=== PATIENT | male | born 1985 | race Caucasian/White ===

== ENCOUNTER 2017-05-28 18:15 | Inpatient (IN) | payer MEDICAID, OTHER ==
[~2017-05-28] VITALS: Ht 182.9 cm; Wt 81.0 kg
[~2017-05-28 18:15] MED LIST: AMPH15TA2 PO
[2017-05-28] MEDS ORDERED: normal saline 1000ML IV soln IVB ONE (20:15)
[2017-05-28] MEDS ORDERED: ondansetron/PF 4mg/2ml inj IV ONE (20:15)
[2017-05-28] MEDS ORDERED: LORazepam 2 mg/ml vial IV ONE (20:15)
[2017-05-28 20:42] LABS: BASOPHILS % (AUTO) 0.3 % (0-1); EOSINOPHILS # (AUTO) 0.2 X10'3 (0-0.9); EOSINOPHILS % (AUTO) 2.1 % (0-6); HEMATOCRIT 53.4 % (42.0-52.0); LYMPHOCYTES % (AUTO) 11.1 % (21-51); MEAN CORPUSCULAR HEMOGLOBIN 31.2 PG (27.0-31.0); MEAN CORPUSCULAR HGB CONC 34.1 % (33.0-36.5); MEAN CORPUSCULAR VOLUME 91.3 FL (78-98); MEAN PLATELET VOLUME 7.8 FL (7.4-10.4); MONOCYTES # (AUTO) 0.6 X10'3 (0-0.9); MONOCYTES % (AUTO) 6.6 % (2-12); NEUTROPHILS # (AUTO) 6.9 X10'3 (1.8-7.7); NEUTROPHILS % (AUTO) 79.9 % (42-75); PLATELET COUNT 254 X10'3 (140-440); RED BLOOD COUNT 5.85 X10'6 (4.70-6.10); RED CELL DISTRIBUTION WIDTH 12.9 % (11.5-14.5); WHITE BLOOD COUNT 8.7 X10'3 (4.5-11.0)
[2017-05-28 20:46] LABS: HEMOGLOBIN 18.2 g/dl (14.0-17.9)
[2017-05-28 20:59] LABS: ALANINE AMINOTRANSFERASE 25 U/L (12-78); ALBUMIN/GLOBULIN RATIO 1.1 (1.1-1.5); ALKALINE PHOSPHATASE 68 IU/L (46-116); ANION GAP 6 (8-16); ASPARTATE AMINO TRANSFERASE 14 U/L (10-37); BILIRUBIN,TOTAL 0.7 MG/DL (0.1-1.0); BLOOD UREA NITROGEN 9 MG/DL (7-18); CALCIUM 9.1 MG/DL (8.5-10.1); CHLORIDE 105 MMOL/L (99-107); CREATININE 0.75 MG/DL (0.60-1.10); ETHANOL < 0.010 GM/DL (0.0-0.010); GLUCOSE 107 MG/DL (70-104); POTASSIUM 3.9 MMOL/L (3.5-5.1); SODIUM 141 MMOL/L (135-145); TOTAL CARBON DIOXIDE 29.7 MMOL/L (24-32); TOTAL PROTEIN 7.7 G/DL (6.4-8.2); eGFR > 90 ML/MIN
[2017-05-28] MEDS ORDERED: temazepam 15mg capsule PO PRN (21:00)
[2017-05-28] MEDS ORDERED: morphine 5 MG/ML injection IV ONE (21:20)
[2017-05-28] MEDS ORDERED: ALPR2TAB2 PO (21:23)
[2017-05-28 21:25] LABS: LIPASE 94 U/L (73-393)
[2017-05-28] MEDS ORDERED: HYDROmorphone 1 mg/ml syringe IV PRN ×2 (21:45)
[2017-05-28] MEDS ORDERED: acetaminophen 325mg tablet PO PRN ×2 (21:45)
[2017-05-28] MEDS ORDERED: bisacodyl 10mg suppository rectal RC PRN (21:45)
[2017-05-28] MEDS ORDERED: metoclopramide 5 mg/ml inj IV PRN (21:45)
[2017-05-28] MEDS ORDERED: magnesium hydroxide 30ml (MOM) UD suspension PO PRN (21:45)
[2017-05-28] MEDS ORDERED: thiamine 100mg/ml 2ml inj. IV ONE (21:45)
[2017-05-28] MEDS ORDERED: mag hydrox/Alum hydrox/simeth 30ml oral suspension PO PRN (21:45)
[2017-05-28] MEDS ORDERED: diphenhydrAMINE 50 mg/ml inj IV PRN (21:45)
[2017-05-28] MEDS ORDERED: acetaminophen 650mg rectal suppository RC PRN (21:45)
[2017-05-28] MEDS ORDERED: thiamine inj. 100 MG in normal saline 100ml IV soln 100 ML IV ONE (21:45)
[2017-05-28] MEDS ORDERED: diphenhydrAMINE 25mg capsule PO PRN (21:45)
[2017-05-28] MEDS ORDERED: dextrose 50%-water 50ml dispensing syringe IV PRN (21:45)
[2017-05-28] MEDS ORDERED: haloperidol 5mg tablet PO PRN (21:45)
[2017-05-28] MEDS ORDERED: haloperidol lactate 5mg/ml inj IM PRN (21:45)
[2017-05-28] MEDS ORDERED: normal saline 1000ml 1,000 ML IVB ONE (21:54)
[2017-05-28 22:14] LABS: PARTIAL THROMBOPLASTIN TIME 26 SECONDS (22-32); PROTHROMBIN TIME 10.3 SECONDS (9.0-12.0)
[2017-05-28 22:20] LABS: CREATINE KINASE 100 U/L (39-308); MAGNESIUM 1.8 MG/DL (1.5-2.4); PHOSPHORUS 3.8 MG/DL (2.3-4.5)
[2017-05-28] MEDS ORDERED: morphine sulfate 8 MG/ML SYRINGE IV PRN (22:40)
[2017-05-28] MEDS: dextrose 5%-1/2 normal saline 1,000 ML IV SCH (23:00)
[2017-05-28] MEDS: LORazepam 2 mg/ml vial IV PRN (23:45)
[2017-05-29] VITALS: BP 121/76
[2017-05-29] MEDS: folic acid inj. 2 MG, thiamine inj. 100 MG, MVI, adult No.4 with vit. K 10 ML in dextro... IV SCH ×8 (00:44→08:54)
[2017-05-29] MEDS: morphine sulfate 8 MG/ML SYRINGE IV PRN ×2 (01:31→08:56)
[2017-05-29] MEDS: LORazepam 2 mg/ml vial IV PRN ×5 (05:57→21:25)
[2017-05-29 06:06] LABS: BASOPHILS % (AUTO) 0.4 % (0-1); EOSINOPHILS # (AUTO) 0.2 X10'3 (0-0.9); EOSINOPHILS % (AUTO) 3.2 % (0-6); HEMATOCRIT 44.8 % (42.0-52.0); HEMOGLOBIN 15.4 g/dl (14.0-17.9); LYMPHOCYTES # (AUTO) 1.7 X10'3 (1.1-4.8); LYMPHOCYTES % (AUTO) 25.5 % (21-51); MEAN CORPUSCULAR HEMOGLOBIN 31.6 PG (27.0-31.0); MEAN CORPUSCULAR HGB CONC 34.5 % (33.0-36.5); MEAN CORPUSCULAR VOLUME 91.7 FL (78-98); MEAN PLATELET VOLUME 8.4 FL (7.4-10.4); MONOCYTES # (AUTO) 0.7 X10'3 (0-0.9); MONOCYTES % (AUTO) 10.3 % (2-12); NEUTROPHILS % (AUTO) 60.6 % (42-75); PLATELET COUNT 204 X10'3 (140-440); RED BLOOD COUNT 4.88 X10'6 (4.70-6.10); RED CELL DISTRIBUTION WIDTH 13.4 % (11.5-14.5); WHITE BLOOD COUNT 6.6 X10'3 (4.5-11.0)
[2017-05-29 06:14] LABS: PROTHROMBIN TIME 10.4 SECONDS (9.0-12.0)
[2017-05-29 06:40] LABS: ALANINE AMINOTRANSFERASE 22 U/L (12-78); ALBUMIN 2.9 G/DL (3.4-5.0); ALKALINE PHOSPHATASE 51 IU/L (46-116); AMYLASE 33 U/L (25-115); ANION GAP 7 (8-16); ASPARTATE AMINO TRANSFERASE 11 U/L (10-37); BILIRUBIN,TOTAL 0.5 MG/DL (0.1-1.0); BLOOD UREA NITROGEN 11 MG/DL (7-18); BUN/CREATININE RATIO 14.1 (5.4-32.0); CALCIUM 8.2 MG/DL (8.5-10.1); CHLORIDE 109 MMOL/L (99-107); CHOL/HDL RATIO 2.1 (0.00-4.99); CHOLESTEROL 134 MG/DL (0-200); CREATININE 0.78 MG/DL (0.60-1.10); GLUCOSE 100 MG/DL (70-104); HDL CHOLESTEROL 65 MG/DL (35-60); LDL CHOLESTEROL 65 MG/DL (50-100); LIPASE 100 U/L (73-393); MAGNESIUM 1.7 MG/DL (1.5-2.4); PHOSPHORUS 3.8 MG/DL (2.3-4.5); POTASSIUM 3.5 MMOL/L (3.5-5.1); SODIUM 144 MMOL/L (135-145); TOTAL PROTEIN 5.8 G/DL (6.4-8.2); TRIGLYCERIDES 93 MG/DL (20-135); eGFR > 90 ML/MIN
[2017-05-29 07:03] VITALS: BP 112/65
[2017-05-29] MEDS: docusate sod 100mg capsule PO SCH ×2 (08:55→19:44)
[2017-05-29] MEDS: heparin, porcine 5000 units/ml vial SQ SCH ×2 (08:55→19:44)
[2017-05-29] MEDS: pantoprazole 40 MG vial IV SCH (08:55)
[2017-05-29 11:00] VITALS: BP 104/61
[2017-05-29] MEDS: dextrose 5%-1/2 normal saline 1,000 ML IV SCH ×2 (17:14→17:44)
[2017-05-29 18:00] VITALS: BP 123/73
[2017-05-30] VITALS: BP 111/68
[2017-05-30] MEDS: LORazepam 2 mg/ml vial IV PRN ×5 (01:56→18:55)
[2017-05-30] MEDS: dextrose 5%-1/2 normal saline 1,000 ML IV SCH ×3 (03:40→20:26)
[2017-05-30 06:16] LABS: BASOPHILS # (AUTO) 0.1 X10'3 (0-0.2); EOSINOPHILS # (AUTO) 0.2 X10'3 (0-0.9); HEMATOCRIT 47.3 % (42.0-52.0); HEMOGLOBIN 16.4 g/dl (14.0-17.9); LYMPHOCYTES # (AUTO) 1.1 X10'3 (1.1-4.8); LYMPHOCYTES % (AUTO) 17.4 % (21-51); MEAN CORPUSCULAR HEMOGLOBIN 31.7 PG (27.0-31.0); MEAN CORPUSCULAR HGB CONC 34.6 % (33.0-36.5); MEAN CORPUSCULAR VOLUME 91.5 FL (78-98); MEAN PLATELET VOLUME 8.1 FL (7.4-10.4); MONOCYTES # (AUTO) 0.6 X10'3 (0-0.9); MONOCYTES % (AUTO) 9.5 % (2-12); NEUTROPHILS # (AUTO) 4.3 X10'3 (1.8-7.7); NEUTROPHILS % (AUTO) 69.1 % (42-75); PLATELET COUNT 200 X10'3 (140-440); RED BLOOD COUNT 5.17 X10'6 (4.70-6.10); RED CELL DISTRIBUTION WIDTH 13.4 % (11.5-14.5); WHITE BLOOD COUNT 6.2 X10'3 (4.5-11.0)
[2017-05-30 06:22] LABS: PROTHROMBIN TIME 10.3 SECONDS (9.0-12.0)
[2017-05-30 06:37] LABS: ALANINE AMINOTRANSFERASE 22 U/L (12-78); ALBUMIN 3.2 G/DL (3.4-5.0); ALBUMIN/GLOBULIN RATIO 0.9 (1.1-1.5); ALKALINE PHOSPHATASE 52 IU/L (46-116); AMYLASE 33 U/L (25-115); ANION GAP 6 (8-16); ASPARTATE AMINO TRANSFERASE 12 U/L (10-37); BILIRUBIN,TOTAL 0.6 MG/DL (0.1-1.0); BLOOD UREA NITROGEN 13 MG/DL (7-18); BUN/CREATININE RATIO 18.3 (5.4-32.0); CALCIUM 8.6 MG/DL (8.5-10.1); CHLORIDE 106 MMOL/L (99-107); CREATININE 0.71 MG/DL (0.60-1.10); GLUCOSE 103 MG/DL (70-104); LIPASE 93 U/L (73-393); PHOSPHORUS 3.7 MG/DL (2.3-4.5); SODIUM 142 MMOL/L (135-145); TOTAL CARBON DIOXIDE 29.8 MMOL/L (24-32); TOTAL PROTEIN 6.6 G/DL (6.4-8.2); eGFR > 90 ML/MIN
[2017-05-30 08:00] VITALS: BP 110/70
[2017-05-30] MEDS: docusate sod 100mg capsule PO SCH ×2 (09:28→20:25)
[2017-05-30] MEDS: folic acid inj. 2 MG, thiamine inj. 100 MG, MVI, adult No.4 with vit. K 10 ML in dextro... IV SCH ×4 (09:28)
[2017-05-30] MEDS: pantoprazole 40 MG vial IV SCH (09:29)
[2017-05-30] MEDS: heparin, porcine 5000 units/ml vial SQ SCH ×2 (09:29→20:25)
[2017-05-30] MEDS ORDERED: FLU VACC QS2017-18 36MOS UP/PF 60 MCG/0.5 ML SYRINGE IMVAC ONE (10:00)
[2017-05-30 12:00] VITALS: BP 118/85
[2017-05-30 20:00] VITALS: BP 122/71
[2017-05-30] MEDS ORDERED: LORazepam 2 mg/ml vial IV PRN (21:45)
[2017-05-30] MEDS: HYDROcodone/acetaminophen 10/325mg tab PO PRN (23:49)
[2017-05-30] MEDS: LORazepam 1 MG tablet PO PRN (23:50)
[2017-05-31] VITALS: BP 103/57
[2017-05-31] MEDS: LORazepam 1 MG tablet PO PRN ×6 (03:09→21:35)
[2017-05-31 05:10] LABS: BASOPHILS % (AUTO) 0.7 % (0-1); EOSINOPHILS # (AUTO) 0.3 X10'3 (0-0.9); EOSINOPHILS % (AUTO) 5.4 % (0-6); HEMATOCRIT 47.4 % (42.0-52.0); HEMOGLOBIN 16.3 g/dl (14.0-17.9); LYMPHOCYTES # (AUTO) 1.3 X10'3 (1.1-4.8); LYMPHOCYTES % (AUTO) 20.2 % (21-51); MEAN CORPUSCULAR HEMOGLOBIN 31.6 PG (27.0-31.0); MEAN CORPUSCULAR HGB CONC 34.4 % (33.0-36.5); MEAN CORPUSCULAR VOLUME 91.8 FL (78-98); MEAN PLATELET VOLUME 8.4 FL (7.4-10.4); MONOCYTES # (AUTO) 0.6 X10'3 (0-0.9); MONOCYTES % (AUTO) 9.3 % (2-12); NEUTROPHILS # (AUTO) 4.1 X10'3 (1.8-7.7); NEUTROPHILS % (AUTO) 64.4 % (42-75); PLATELET COUNT 203 X10'3 (140-440); RED BLOOD COUNT 5.16 X10'6 (4.70-6.10); RED CELL DISTRIBUTION WIDTH 13.3 % (11.5-14.5); WHITE BLOOD COUNT 6.3 X10'3 (4.5-11.0)
[2017-05-31 05:30] LABS: ALANINE AMINOTRANSFERASE 21 U/L (12-78); ALBUMIN 3.3 G/DL (3.4-5.0); ALKALINE PHOSPHATASE 54 IU/L (46-116); AMYLASE 37 U/L (25-115); ASPARTATE AMINO TRANSFERASE 10 U/L (10-37); BILIRUBIN,TOTAL 0.3 MG/DL (0.1-1.0); BLOOD UREA NITROGEN 14 MG/DL (7-18); BUN/CREATININE RATIO 18.2 (5.4-32.0); CREATININE 0.77 MG/DL (0.60-1.10); GLUCOSE 88 MG/DL (70-104); LIPASE 112 U/L (73-393); POTASSIUM 3.9 MMOL/L (3.5-5.1); TOTAL CARBON DIOXIDE 31.8 MMOL/L (24-32); TOTAL PROTEIN 6.7 G/DL (6.4-8.2); eGFR > 90 ML/MIN
[2017-05-31 05:35] LABS: ANION GAP 5 (8-16); CALCIUM 8.8 MG/DL (8.5-10.1); CHLORIDE 105 MMOL/L (99-107); SODIUM 142 MMOL/L (135-145)
[2017-05-31 06:03] LABS: PROTHROMBIN TIME 10.2 SECONDS (9.0-12.0)
[2017-05-31 08:16] VITALS: BP 120/78
[2017-05-31] MEDS: pantoprazole 40 MG vial IV SCH (08:37)
[2017-05-31] MEDS: folic acid inj. 2 MG, thiamine inj. 100 MG, MVI, adult No.4 with vit. K 10 ML in dextro... IV SCH ×4 (08:37)
[2017-05-31] MEDS: docusate sod 100mg capsule PO SCH ×2 (08:38→20:30)
[2017-05-31] MEDS: heparin, porcine 5000 units/ml vial SQ SCH ×2 (08:49→20:31)
[2017-05-31] MEDS: dextrose 5%-1/2 normal saline 1,000 ML IV SCH ×2 (09:44→21:35)
[2017-05-31 11:24] VITALS: BP 118/64
[2017-05-31] MEDS: ondansetron/PF 4mg/2ml inj IV PRN (17:01)
[2017-05-31 18:35] VITALS: BP 107/72
[2017-05-31] MEDS: traZODone 50mg tablet PO SCH (20:30)
[2017-06-01] VITALS: BP 107/72
[2017-06-01] MEDS: LORazepam 1 MG tablet PO PRN ×9 (00:28→21:31)
[2017-06-01 04:00] LABS: BASOPHILS # (AUTO) 0.1 X10'3 (0-0.2); EOSINOPHILS # (AUTO) 0.3 X10'3 (0-0.9); EOSINOPHILS % (AUTO) 4.3 % (0-6); HEMATOCRIT 44.8 % (42.0-52.0); HEMOGLOBIN 15.4 g/dl (14.0-17.9); LYMPHOCYTES # (AUTO) 1.3 X10'3 (1.1-4.8); LYMPHOCYTES % (AUTO) 19.7 % (21-51); MEAN CORPUSCULAR HEMOGLOBIN 31.5 PG (27.0-31.0); MEAN CORPUSCULAR HGB CONC 34.3 % (33.0-36.5); MEAN CORPUSCULAR VOLUME 91.8 FL (78-98); MEAN PLATELET VOLUME 8.4 FL (7.4-10.4); MONOCYTES # (AUTO) 0.7 X10'3 (0-0.9); MONOCYTES % (AUTO) 10.6 % (2-12); NEUTROPHILS # (AUTO) 4.2 X10'3 (1.8-7.7); NEUTROPHILS % (AUTO) 64.4 % (42-75); PLATELET COUNT 193 X10'3 (140-440); RED BLOOD COUNT 4.88 X10'6 (4.70-6.10); RED CELL DISTRIBUTION WIDTH 13.5 % (11.5-14.5); WHITE BLOOD COUNT 6.6 X10'3 (4.5-11.0)
[2017-06-01 04:10] LABS: PROTHROMBIN TIME 10.2 SECONDS (9.0-12.0)
[2017-06-01 04:18] LABS: ALANINE AMINOTRANSFERASE 17 U/L (12-78); ALBUMIN/GLOBULIN RATIO 0.9 (1.1-1.5); ALKALINE PHOSPHATASE 48 IU/L (46-116); AMYLASE 38 U/L (25-115); ANION GAP 5 (8-16); ASPARTATE AMINO TRANSFERASE 12 U/L (10-37); BILIRUBIN,TOTAL 0.3 MG/DL (0.1-1.0); BLOOD UREA NITROGEN 15 MG/DL (7-18); BUN/CREATININE RATIO 19.2 (5.4-32.0); CALCIUM 8.1 MG/DL (8.5-10.1); CHLORIDE 106 MMOL/L (99-107); CREATININE 0.78 MG/DL (0.60-1.10); GLUCOSE 111 MG/DL (70-104); LIPASE 116 U/L (73-393); MAGNESIUM 1.9 MG/DL (1.5-2.4); PHOSPHORUS 3.5 MG/DL (2.3-4.5); POTASSIUM 3.5 MMOL/L (3.5-5.1); SODIUM 142 MMOL/L (135-145); TOTAL CARBON DIOXIDE 30.7 MMOL/L (24-32); TOTAL PROTEIN 6.2 G/DL (6.4-8.2); eGFR > 90 ML/MIN
[2017-06-01] MEDS: dextrose 5%-1/2 normal saline 1,000 ML IV SCH ×3 (05:20→19:01)
[2017-06-01 07:00] VITALS: BP 107/57
[2017-06-01] MEDS: pantoprazole 40 MG vial IV SCH (07:26)
[2017-06-01] MEDS: folic acid inj. 2 MG, thiamine inj. 100 MG, MVI, adult No.4 with vit. K 10 ML in dextro... IV SCH ×4 (07:26)
[2017-06-01] MEDS: heparin, porcine 5000 units/ml vial SQ SCH ×2 (07:26→19:57)
[2017-06-01] MEDS: docusate sod 100mg capsule PO SCH ×2 (07:26→19:56)
[2017-06-01 11:00] VITALS: BP 88/48
[2017-06-01 11:05] VITALS: BP 88/51
[2017-06-01] MEDS: HYDROcodone/acetaminophen 10/325mg tab PO PRN ×2 (16:15→19:57)
[2017-06-01 18:40] VITALS: BP 108/59
[2017-06-01] MEDS: traZODone 50mg tablet PO SCH (19:56)
[2017-06-01] MEDS ORDERED: LORazepam 2 mg/ml vial IV PRN (21:45)
[2017-06-01] MEDS: zolpidem 5mg tablet PO PRN (22:09)
[2017-06-02] MEDS: LORazepam 1 MG tablet PO PRN ×2 (02:24→08:37)
[2017-06-02] MEDS: HYDROcodone/acetaminophen 10/325mg tab PO PRN ×4 (02:26→18:57)
[2017-06-02] MEDS: dextrose 5%-1/2 normal saline 1,000 ML IV SCH ×3 (02:27→21:23)
[2017-06-02 05:41] LABS: BASOPHILS % (AUTO) 0.4 % (0-1); EOSINOPHILS # (AUTO) 0.2 X10'3 (0-0.9); EOSINOPHILS % (AUTO) 3.3 % (0-6); HEMATOCRIT 43.8 % (42.0-52.0); LYMPHOCYTES # (AUTO) 1.4 X10'3 (1.1-4.8); LYMPHOCYTES % (AUTO) 20.7 % (21-51); MEAN CORPUSCULAR HEMOGLOBIN 31.4 PG (27.0-31.0); MEAN CORPUSCULAR HGB CONC 34.3 % (33.0-36.5); MEAN CORPUSCULAR VOLUME 91.4 FL (78-98); MEAN PLATELET VOLUME 8.4 FL (7.4-10.4); MONOCYTES # (AUTO) 0.7 X10'3 (0-0.9); MONOCYTES % (AUTO) 10.8 % (2-12); NEUTROPHILS # (AUTO) 4.3 X10'3 (1.8-7.7); NEUTROPHILS % (AUTO) 64.8 % (42-75); PLATELET COUNT 184 X10'3 (140-440); RED BLOOD COUNT 4.79 X10'6 (4.70-6.10); RED CELL DISTRIBUTION WIDTH 13.2 % (11.5-14.5); WHITE BLOOD COUNT 6.7 X10'3 (4.5-11.0)
[2017-06-02 06:07] LABS: PROTHROMBIN TIME 10.2 SECONDS (9.0-12.0)
[2017-06-02 06:49] LABS: ALANINE AMINOTRANSFERASE 21 U/L (12-78); ALBUMIN/GLOBULIN RATIO 0.9 (1.1-1.5); ALKALINE PHOSPHATASE 48 IU/L (46-116); AMYLASE 45 U/L (25-115); ANION GAP 6 (8-16); ASPARTATE AMINO TRANSFERASE 12 U/L (10-37); BILIRUBIN,TOTAL 0.4 MG/DL (0.1-1.0); BLOOD UREA NITROGEN 10 MG/DL (7-18); BUN/CREATININE RATIO 14.7 (5.4-32.0); CALCIUM 8.4 MG/DL (8.5-10.1); CHLORIDE 108 MMOL/L (99-107); CREATININE 0.68 MG/DL (0.60-1.10); GLUCOSE 81 MG/DL (70-104); LIPASE 161 U/L (73-393); MAGNESIUM 1.9 MG/DL (1.5-2.4); POTASSIUM 3.9 MMOL/L (3.5-5.1); SODIUM 144 MMOL/L (135-145); TOTAL CARBON DIOXIDE 30.2 MMOL/L (24-32); TOTAL PROTEIN 6.2 G/DL (6.4-8.2); eGFR > 90 ML/MIN
[2017-06-02 07:09] VITALS: BP 95/55
[2017-06-02] MEDS: thiamine 100mg tablet PO SCH (08:36)
[2017-06-02] MEDS: multivitamins, therapeutics tablet PO SCH (08:36)
[2017-06-02] MEDS: heparin, porcine 5000 units/ml vial SQ SCH ×2 (08:36→20:05)
[2017-06-02] MEDS: docusate sod 100mg capsule PO SCH ×2 (08:37→20:04)
[2017-06-02] MEDS: folic acid 1mg tablet PO SCH (08:37)
[2017-06-02] MEDS: pantoprazole 40mg Tablet.DR PO SCH (08:39)
[2017-06-02 11:00] VITALS: BP 100/54
[2017-06-02 19:00] VITALS: BP 118/71
[2017-06-02] MEDS: traZODone 50mg tablet PO SCH (20:04)
[2017-06-02] MEDS ORDERED: LORazepam 0.5 MG tablet PO PRN (20:15)
[2017-06-02] MEDS ORDERED: LORazepam 1 MG tablet PO ONE (21:00)
[2017-06-02] MEDS: zolpidem 5mg tablet PO PRN (21:08)
[2017-06-03] VITALS: BP 118/70
[2017-06-03] MEDS: HYDROcodone/acetaminophen 5mg/325mg tablet PO PRN ×5 (02:37→21:39)
[2017-06-03] MEDS: dextrose 5%-1/2 normal saline 1,000 ML IV SCH ×2 (07:46→17:38)
[2017-06-03] MEDS: folic acid 1mg tablet PO SCH (07:48)
[2017-06-03] MEDS: docusate sod 100mg capsule PO SCH ×2 (07:49→21:38)
[2017-06-03] MEDS: multivitamins, therapeutics tablet PO SCH (07:49)
[2017-06-03] MEDS: pantoprazole 40mg Tablet.DR PO SCH (07:50)
[2017-06-03] MEDS: heparin, porcine 5000 units/ml vial SQ SCH ×2 (07:50→21:38)
[2017-06-03] MEDS: thiamine 100mg tablet PO SCH (07:50)
[2017-06-03 08:18] VITALS: BP 107/59
[2017-06-03 11:40] VITALS: BP 93/50
[2017-06-03] MEDS: hydrOXYzine 25 MG tablet PO PRN ×2 (12:07→17:39)
[2017-06-03 18:00] VITALS: BP 126/73
[2017-06-03] MEDS: traZODone 50mg tablet PO SCH (20:00)
[2017-06-03] MEDS: zolpidem 5mg tablet PO PRN (21:38)
[2017-06-03] MEDS ORDERED: LORazepam 0.5 MG tablet PO PRN (21:40)
[2017-06-04] VITALS: BP 118/66
[2017-06-04] MEDS: dextrose 5%-1/2 normal saline 1,000 ML IV SCH (03:44)
[2017-06-04] MEDS: hydrOXYzine 25 MG tablet PO PRN (04:36)
[2017-06-04] MEDS: HYDROcodone/acetaminophen 5mg/325mg tablet PO PRN ×2 (04:37→08:26)
[2017-06-04] MEDS: ondansetron/PF 4mg/2ml inj IV PRN (05:03)
[2017-06-04 07:31] VITALS: BP 101/57
[2017-06-04] MEDS: thiamine 100mg tablet PO SCH (08:24)
[2017-06-04] MEDS: docusate sod 100mg capsule PO SCH (08:24)
[2017-06-04] MEDS: pantoprazole 40mg Tablet.DR PO SCH (08:24)
[2017-06-04] MEDS: multivitamins, therapeutics tablet PO SCH (08:24)
[2017-06-04] MEDS: folic acid 1mg tablet PO SCH (08:24)
[2017-06-04] MEDS: heparin, porcine 5000 units/ml vial SQ SCH (08:25)
[2017-06-04] MEDS ORDERED: HYDR50CA5 PO (10:51)
[2017-06-04] MEDS ORDERED: TRAZ-143 PO (10:51)
[2017-06-04 11:05] VITALS: BP 112/63
== END 2017-06-04 12:43 | disposition home or self-care (01) | DRG 773 ==
LOC: ER 18:16 → ED HOLD 21:44 → SUR 3N 22:43
PROVIDERS: ADMIT Family Medicine; ATTEND Family Medicine
DX: F10.239 Alcohol dependence with withdrawal, unspecified (principal); F11.10 Opioid abuse, uncomplicated; F10.231 Alcohol dependence with withdrawal delirium; E86.1 Hypovolemia; F19.10 Other psychoactive substance abuse, uncomplicated; F41.9 Anxiety disorder, unspecified; F90.9 Attention-deficit hyperactivity disorder, unspecified type; Z87.442 Personal history of urinary calculi; G89.29 Other chronic pain; M54.2 Cervicalgia; M54.9 Dorsalgia, unspecified; Z79.899 Other long term (current) drug therapy; Z79.01 Long term (current) use of anticoagulants; Z56.0 Unemployment, unspecified
CPT/HCPCS: 36415; 70450; 72125; 80053; 80061; 80320; 82150; 82550; 82948; 83690; 83735; 83880; 84100; 85025; 85610; 85730; 87070; 93005; 96374; 96375; 99285; C9113; J1644; J2060; J2270; J2405; J3411; J3490; J7030; J7060; Q0177; Q2037